=== PATIENT | male | born 1965 | race Caucasian/White ===

== ENCOUNTER 2021-02-21 17:22 | Outpatient (REF) | payer MEDICAID, SELFPAY ==
[2021-02-21 15:45] LABS: ALT 46 U/L (16-63); AST 36 U/L (15-37); Albumin 3.9 g/dL (3.4-5.0); Alkaline Phosphatase 120 U/L (46-116); Anion Gap 7.8 mmol/L (3-11); BUN 22 mg/dL (7-18); Bilirubin, Total 1.6 mg/dL (0.2-1.0); CO2 30.2 mmol/L (21.0-32.0); CREATININE 1.1 mg/dL (0.70-1.30); Calcium 9.2 mg/dL (8.5-10.1); Calculated LDL 74 mg/dL (<100); Chloride 106 mmol/L (98-107); Cholesterol 153 mg/dL (<200); Glucose 74 mg/dL (74-106); HDL Cholesterol 68 mg/dL (40-60); Potassium 4.1 mmol/L (3.5-5.1); Sodium 144 mmol/L (136-145); Total Protein 6.9 g/dL (6.4-8.2); Triglyceride 56 mg/dL (<150)
== END 2021-02-21 17:23 | disposition home or self-care (01) ==
LOC: NCHCN 17:22
PROVIDERS: Visit Provider Physician Assistant
DX: E78.5 Hyperlipidemia, unspecified (principal); Z82.49 Family history of ischemic heart disease and other diseases of the circulatory system
CPT/HCPCS: 80053; 80061

== ENCOUNTER 2022-04-07 18:58 | Outpatient (REF) | payer MEDICAID, SELFPAY ==
[2022-04-07 19:26] LABS: ALT 59 U/L (16-63); AST 47 U/L (15-37); Albumin 4.1 g/dL (3.4-5.0); Alkaline Phosphatase 123 U/L (46-116); BUN 22 mg/dL (7-18); Bilirubin, Total 2.3 mg/dL (0.2-1.0); Calcium 9.6 mg/dL (8.5-10.1); Chloride 101 mmol/L (98-107); Glucose 95 mg/dL (74-106); Sodium 138 mmol/L (136-145); Total Protein 7.4 g/dL (6.4-8.2)
== END 2022-04-07 18:59 | disposition home or self-care (01) ==
LOC: NCHCN 18:58
PROVIDERS: PCP Physician Assistant; Visit Provider Physician Assistant
DX: E78.5 Hyperlipidemia, unspecified (principal); H81.02 Meniere's disease, left ear
CPT/HCPCS: 80053

== ENCOUNTER 2023-04-14 14:58 | Outpatient (REF) | payer MEDICAID, SELFPAY ==
[2023-04-14 20:29] LABS: HCT 47.2 % (40.0-50.0); HGB 16.8 g/dL (13.5-17.5); MCH 32.1 pg (27.0-33.0); MCHC 35.6 % (32.0-36.0); MCV 90 fL (80-95); MPV 8.7 fL (8.0-11.0); Platelet Count 251 10^3/uL (130-400); RBC 5.24 10^6/uL (4.36-5.78); RDW 12.6 % (11.8-14.1); RDW-SD 41.4 fL; WBC 5.64 10^3/uL (4.4-10.8)
[2023-04-14 20:45] LABS: ALT 38 U/L (16-63); AST 36 U/L (15-37); Albumin 3.8 g/dL (3.4-5.0); Alkaline Phosphatase 127 U/L (46-116); Anion Gap 6.6 mmol/L (3-11); BUN 16 mg/dL (7-18); Bilirubin, Total 2.1 mg/dL (0.2-1.0); CO2 30.4 mmol/L (21.0-32.0); CREATININE 1.2 mg/dL (0.70-1.30); Calcium 9.2 mg/dL (8.5-10.1); Calculated LDL 63 mg/dL (<100); Chloride 104 mmol/L (98-107); Cholesterol 133 mg/dL (<200); Estimated GFR 69.23 (mL/min/1.73m2); Glucose 87 mg/dL (74-106); HDL Cholesterol 63 mg/dL (40-60); Potassium 4.2 mmol/L (3.5-5.1); Sodium 141 mmol/L (136-145); Total Protein 7.4 g/dL (6.4-8.2); Triglyceride 36 mg/dL (<150)
== END 2023-04-14 14:59 | disposition home or self-care (01) ==
LOC: NCHCN 14:58
PROVIDERS: PCP Physician Assistant; Visit Provider Physician Assistant
DX: Z00.00 Encounter for general adult medical examination without abnormal findings (principal); K76.0 Fatty (change of) liver, not elsewhere classified; E78.5 Hyperlipidemia, unspecified
CPT/HCPCS: 80053; 80061; 85027

== ENCOUNTER 2023-09-22 12:39 | Outpatient (CLI) | payer BC, SELFPAY ==
[2023-09-03 16:44] LABS: Potassium 3.7 mmol/L (3.5-5.1)
[2023-09-07 15:05] LABS: Penicillin G IgE <0.10 kU/L (<0.70); Penicillin V IgE <0.10 kU/L (<0.70)
== END 2023-09-22 12:40 | disposition home or self-care (01) ==
LOC: LBO 12:39
PROVIDERS: PCP Physician Assistant; Visit Provider Otolaryngology Otolaryngology/Facial Plastic Surgery
DX: T78.40XA Allergy, unspecified, initial encounter (principal); H72.92 Unspecified perforation of tympanic membrane, left ear
CPT/HCPCS: 36415; 84132; 86003

== ENCOUNTER 2023-12-09 12:23 | Outpatient (CLI) | payer BC, SELFPAY ==
[2023-12-09 13:02] LABS: Potassium 4.1 mmol/L (3.5-5.1)
== END 2023-12-09 12:24 | disposition home or self-care (01) ==
LOC: LBO 12:24
PROVIDERS: PCP Physician Assistant; Visit Provider Otolaryngology Otolaryngology/Facial Plastic Surgery
DX: H81.02 Meniere's disease, left ear (principal)
CPT/HCPCS: 36415; 84132

== ENCOUNTER 2024-10-06 12:39 | Outpatient (CLI) | payer BC, SELFPAY ==
[2024-10-06 10:31] LABS: Potassium 4.1 mmol/L (3.5-5.1)
== END 2024-10-06 12:40 | disposition home or self-care (01) ==
LOC: LBO 12:43
PROVIDERS: PCP Physician Assistant; Visit Provider Otolaryngology Otolaryngology/Facial Plastic Surgery
DX: H81.02 Meniere's disease, left ear (principal)
CPT/HCPCS: 36415; 84132

== ENCOUNTER 2025-04-27 12:16 | Outpatient (REF) | payer BC, SELFPAY ==
[2025-04-27 19:32] LABS: Abs Immature Grans 0.01 10^3/uL (0.0-0.06); HCT 47.1 % (40.0-50.0); HGB 16.5 g/dL (13.5-17.5); Immature Grans % 0.2 %; MCH 31.8 pg (27.0-33.0); MCHC 35.0 % (32.0-36.0); MCV 91 fL (80-95); MPV 8.6 fL (8.0-11.0); Platelet Count 243 10^3/uL (130-400); RBC 5.19 10^6/uL (4.36-5.78); RDW 12.8 % (11.8-14.1); RDW-SD 42.5 fL; WBC 5.89 10^3/uL (4.4-10.8)
[2025-04-27 19:51] LABS: ALT 54 U/L (16-63); AST 35 U/L (15-37); Albumin 3.9 g/dL (3.4-5.0); Alkaline Phosphatase 149 U/L (46-116); Anion Gap 6.5 mmol/L (3-11); BUN 17 mg/dL (7-18); Bilirubin, Total 2.0 mg/dL (0.2-1.0); CO2 30.5 mmol/L (21.0-32.0); Calcium 9.6 mg/dL (8.5-10.1); Chloride 105 mmol/L (98-107); Estimated GFR 75.90 (mL/min/1.73m2); Glucose 89 mg/dL (74-106); Potassium 4.0 mmol/L (3.5-5.1); Sodium 142 mmol/L (136-145); Total Protein 7.5 g/dL (6.4-8.2)
== END 2025-04-27 12:17 | disposition home or self-care (01) ==
LOC: NCHCN 12:16
PROVIDERS: PCP Physician Assistant; Visit Provider Physician Assistant
DX: K76.0 Fatty (change of) liver, not elsewhere classified (principal)
CPT/HCPCS: 80053; 85025